=== PATIENT | male | born 1965 | race Caucasian/White ===

== ENCOUNTER 2017-12-05 20:56 | Emergency (ER) | payer BC ==
[~2017-12-05] VITALS: Ht 175.3 cm; Wt 81.2 kg
[2017-12-05 21:40] VITALS: Ht 175.3 cm; Wt 81.2 kg
[2017-12-06 00:06] LABS: CARBON DIOXIDE 29.5 mmol/L (21-32); CHLORIDE SERUM 103 mmol/L (98-107); CREATININE SERUM 0.8 mg/dL (0.7-1.3); GFR1 > 60 mL/min; GLUCOSE SERUM 95 mg/dL (74-106); POTASSIUM SERUM 4.1 mmol/L (3.5-5.1); SODIUM SERUM 141 mmol/L (136-145)
[2017-12-06 00:12] LABS: BASOPHIL % 0.9 % (0-2); PLATELET COUNT 243 x10^3mcL (130-400); RED CELL DISTRIBUTION WIDTH 12.3 % (11.5-14.5)
[2017-12-06 01:02] VITALS: BP 125/73
== END 2017-12-06 01:02 | disposition left against medical advice (07) ==
LOC: ED 20:56
PROVIDERS: Emergency Medicine
DX: R07.9 Chest pain, unspecified (principal); M54.2 Cervicalgia; M25.512 Pain in left shoulder
CPT/HCPCS: 36415; Q0092

== ENCOUNTER 2019-08-09 17:03 | Emergency (ER) | payer BC ==
[~2019-08-09] VITALS: Ht 172.7 cm; Wt 75.7 kg
[2019-08-09 17:07] VITALS: Ht 172.7 cm; Wt 75.7 kg
[2019-08-09 18:11] VITALS: BP 114/77
== END 2019-08-09 18:11 | disposition home or self-care (01) ==
LOC: ED 17:03
DX: S83.91XA Sprain of unspecified site of right knee, initial encounter (principal); X50.1XXA Overexertion from prolonged static or awkward postures, initial encounter; Y93.66 Activity, soccer; Y92.89 Other specified places as the place of occurrence of the external cause; Y99.8 Other external cause status